=== PATIENT | female | born 1950 | race Caucasian/White ===

== ENCOUNTER 2019-10-07 10:18 | Emergency (ER) | payer OTHER ==
[~2019-10-07] VITALS: Ht 162.6 cm; Wt 99.8 kg
[2019-10-07] MEDS ORDERED: RAMIPRIL10 MG (10:55)
[2019-10-07] MEDS ORDERED: SIMVASTATIN10 MG (10:55)
== END 2019-10-07 12:26 | disposition home or self-care (01) ==
LOC: ER 10:18
DX: M17.12 Unilateral primary osteoarthritis, left knee (principal)